=== PATIENT | female | born 1995 | race American Indian/Alaskan Native ===

== ENCOUNTER 2017-06-01 21:39 | Emergency (ER) | payer SELFPAY ==
[2017-06-01 22:20] VITALS: BP 116/75
[2017-06-01 23:39] LABS: Basophils % (Auto) 0.2 % (0.0-1.8); Hemoglobin 15.4 gm/dl (10.1-14.3); Mean Corpuscular HGB Conc 32 % (30-34); Mean Corpuscular Hemoglobin 30 pg (28-32); Mean Corpuscular Volume 93 fl (79-97); Platelet Count 425 K/mm3 (140-440); Red Blood Count 5.14 M/mm3 (3.65-5.03); Red Cell Distribution Width 13.2 % (13.2-15.2); White Blood Count 14.7 K/mm3 (4.5-11.0)
[2017-06-02 00:04] LABS: Anion Gap 22 mmol/L; BUN/Creatinine Ratio 15.71; Blood Urea Nitrogen 11 mg/dL (7-17); Calcium 9.8 mg/dL (8.4-10.2); Carbon Dioxide 26 mmol/L (22-30); Chloride 95.4 mmol/L (98-107); Glucose 107 mg/dL (65-100); Potassium 3.8 mmol/L (3.6-5.0); Sodium 140 mmol/L (137-145)
== END 2017-06-02 02:07 | disposition left against medical advice (07) ==
LOC: ED 21:39
DX: R11.2 Nausea with vomiting, unspecified (principal); Z53.21 Procedure and treatment not carried out due to patient leaving prior to being seen by health care provider
CPT/HCPCS: 36415; 80048; 85025; 93005; 93010

== ENCOUNTER 2019-04-01 12:11 | Emergency (ER) | payer OTHER ==
--- NOTE | 2019-04-01 12:22 | Event Note ---
ED Screening Note ED Screening Note: 16w preg thinks dec movement no vag bleed or dc no abd pain no dysuria vit sside med This initial assessment/diagnostic orders/clinical plan/treatment(s) is/are subject to change based on patients health status, clinical progression and re- assessment by fellow clinical providers in the ED. Further treatment and workup at subsequent clinical providers discretion. Patient/guardian urged not to elope from the ED as their condition may be serious if not clinically assessed and managed. Initial orders include: fht
[2019-04-01 12:47] VITALS: BP 123/65
--- NOTE | 2019-04-01 13:01 | Emergency Department Report ---
ED Recheck HPI - General Chief Complaint: Abdominal Pain Stated Complaint: 18 W CONCERNED W MOVEMENT Time Seen by Provider: 04/01/19 12:44 Source: patient Mode of arrival: Ambulatory Limitations: No Limitations - History of Present Illness Initial Comments: TO ER TO BE SURE BABY OK DEC MOVEMENT PT IS SMALL HERSELF NO ABD PAIN NO VAG BLEED NO VAG DC MD Complaint: wound re-check Symptoms Since Prior Visit: no new symptoms - Related Data Previous Rx's Medication Instructions Recorded Last Taken Type Ibuprofen [Motrin 400 MG tab] 400 mg PO Q8H PRN #30 tablet 04/10/15 Unknown Rx Ondansetron [Zofran Odt] 4 mg PO Q6H PRN #20 tab.rapdis 04/10/15 Unknown Rx traMADol [Ultram 50 MG tab] 50 mg PO Q6HR PRN #14 tablet 04/10/15 Unknown Rx Allergies Allergy/AdvReac Type Severity Reaction Status Date / Time No Known Allergies Allergy Verified 04/10/15 03:51 ED Review of Systems ROS: Stated complaint: 18WKS PREG/NO BABY MOVEMENT X4DAYS Other details as noted in HPI Comment: All other systems reviewed and negative ED Past Medical Hx - Past Medical History Previous Medical History?: Yes Hx Kidney Stones: Yes Additional medical history: appendix - Surgical History Past Surgical History?: Yes Hx Appendectomy: Yes - Family History Family history: no significant - Social History Smoking Status: Never Smoker Substance Use Type: None - Medications Home Medications: Home Medications Medication Instructions Recorded Confirmed Last Taken Type Ibuprofen [Motrin 400 MG tab] 400 mg PO Q8H PRN #30 tablet 04/10/15 Unknown Rx Ondansetron [Zofran Odt] 4 mg PO Q6H PRN #20 tab.rapdis 04/10/15 Unknown Rx traMADol [Ultram 50 MG tab] 50 mg PO Q6HR PRN #14 tablet 04/10/15 Unknown Rx ED Physical Exam - General Limitations: No Limitations General appearance: alert - Head Head exam: Present: normocephalic - Eye Eye exam: Present: normal appearance - ENT ENT exam: Present: mucous membranes moist - Neck Neck exam: Present: full ROM - Respiratory Respiratory exam: Present: normal lung sounds bilaterally - Cardiovascular Cardiovascular Exam: Present: regular rate - GI/Abdominal GI/Abdominal exam: Present: soft, other - Extremities Exam Extremities exam: Present: normal inspection, full ROM - Back Exam Back exam: Present: normal inspection, full ROM - Neurological Exam Neurological exam: Present: alert, oriented X3, CN II-XII intact - Psychiatric Psychiatric exam: Present: normal affect, normal mood - Skin Skin exam: Present: warm, dry ED Course Vital Signs 04/01/19 12:45 Temperature 97.9 F Pulse Rate 92 H Respiratory 16 Rate Blood Pressure 123/65 O2 Sat by Pulse 100 Oximetry ED Recheck MDM - Core Measures Measure Exclusions: not indicated - Differential Diagnosis Recheck of Abnormal Lab - Medical Decision Making PT TO ER BECAUSE PT STATES SHE HASNT FELT BABY MOVE SHE IS 16 WEEKS HEALTHY SEES S SIDE OBGYN NO PROBLEMS WITH PREG NO ABD PAIN NO VAG BLEED OR DC G1 FHT AND MOVEMENT IN TRIAGE HR 150 JUST UNDER UMBILICUS PT REASSURED AND EDUCATED DC HOME WITH FOLLOW UP SCHEDULED WITH HER OBGYN SHE HAS HAD CARE TAKING Vital Signs 04/01/19 12:45 Temperature 97.9 F Pulse Rate 92 H Respiratory 16 Rate Blood Pressure 123/65 O2 Sat by Pulse 100 Oximetry Critical care attestation.: If time is entered above; I have spent that time in minutes in the direct care of this critically ill patient, excluding procedure time. ED Disposition Clinical Impression: , Wellness examination Disposition: DC-01 TO HOME OR SELFCARE Is pt being admited?: No Does the pt Need Aspirin: No Condition: Good Instructions: (ED) Additional Instructions: follow up with obgyn as scheduled [facility] WHAT TO EXPECT WHEN YOU ARE EXPECTING is book we suggested. Time of Disposition: 13:05
== END 2019-04-01 13:15 | disposition home or self-care (01) ==
LOC: ED 12:11
DX: O09.892 Supervision of other high risk pregnancies, second trimester (principal); Z3A.18 18 weeks gestation of pregnancy